=== PATIENT | male | born 1965 | race Caucasian/White ===

== ENCOUNTER 2017-12-15 21:20 | Emergency (ER) | payer BC ==
[2017-12-15 21:29] VITALS: BP 166/86
--- NOTE | 2017-12-15 21:58 | UC ---
FLU HPI - HPI Summary HPI Summary: C/o fever, sore throat and inability to speak for the past 2-3 days. - History of Current Complaint Chief Complaint: UCRespiratory Stated Complaint: FLU SYMPTOMS Time Seen by Provider: 12/15/17 21:31 Pain Intensity: 3 - Allergy/Home Medications Allergies/Adverse Reactions: Allergies Allergy/AdvReac Type Severity Reaction Status Date / Time No Known Allergies Allergy Verified 12/15/17 21:29 Home Medications: Home Medications NK [No Home Medications Reported] 12/15/17 [History Confirmed 12/15/17] PMH/Surg Hx/FS Hx/Imm Hx Previously Healthy: Yes - Surgical History Surgical History: Yes Surgery Procedure, Year, and Place: TONSIL REMOVED AGE 6 - Social History Alcohol Use: Occasionally Substance Use Type: None Smoking Status (MU): Never Smoked Tobacco Review of Systems Constitutional: Fever, Chills, Fatigue ENT: Sore Throat All Other Systems Reviewed And Are Negative: Yes Physical Exam Triage Information Reviewed: Yes Appearance: No Pain Distress, Well-Nourished, Ill-Appearing Vital Signs: Initial Vital Signs Temp 100.5 F 12/15/17 21:27 Pulse 79 12/15/17 21:27 Resp 18 12/15/17 21:27 BP 166/86 12/15/17 21:27 Pulse Ox 100 12/15/17 21:27 Vital Signs Reviewed: Yes Eyes: Positive: Conjunctiva Clear Neck: Positive: Supple, Nontender, No Lymphadenopathy Respiratory: Positive: Chest non-tender, Lungs clear, Normal breath sounds, No respiratory distress Cardiovascular: Positive: RRR, No Murmur, Pulses Normal, Brisk Capillary Refill Abdomen Description: Positive: Nontender Flu Course/Dx - Course Course Of Treatment: Rapid strep test was negative, rapid influenza test was positive for influenza B. Symptomatic for more than 48 hrs, discussed treatment , past therapeutic window, oral hydration, rest and tylenol as needed for pain - Differential Dx/Diagnosis Provider Diagnoses: Influenza B Discharge - Sign-Out/Discharge Documenting (check all that apply): Discharge - Discharge Plan Condition: Stable Disposition: HOME Patient Education Materials: Influenza (ED), Acetaminophen (By mouth) Referrals: Aeb Galvan MD [Primary Care Provider] - - Billing Disposition and Condition Condition: STABLE Disposition: HOME
== END 2017-12-15 22:09 | disposition home or self-care (01) ==
LOC: UCEAST 21:20
DX: J10.1 Influenza due to other identified influenza virus with other respiratory manifestations (principal)
CPT/HCPCS: 87502; 87651; 99211; G0463